=== PATIENT | female | born 1945 | race Caucasian/White ===

== ENCOUNTER 2016-06-22 07:43 | Inpatient (IN) | payer MEDICARE ==
[~2016-06-22] VITALS: Ht 160 cm; Wt 72.6 kg
[2016-06-22 08:41] LABS: HEMOGLOBIN 13.1 gm/dl (12.3-15.3); RED BLOOD COUNT 4.54 M/UL (4.00-5.10); WHITE BLOOD COUNT 7.6 K/UL (4.5-11.0)
[2016-06-22 08:55] LABS: BUN/CREATININE RATIO 30 (0-10)
[2016-06-22 16:51] LABS: HEMOGLOBIN 13.4 gm/dl (12.3-15.3)
[2016-06-22 23:06] LABS: HEMOGLOBIN 12.5 gm/dl (12.3-15.3)
[2016-06-23] MEDS ORDERED: PLAQUENIL 200200 MG PO (01:23)
[2016-06-23] MEDS ORDERED: HYDROCHLOROTHIA25 MG PO (01:23)
[2016-06-23] MEDS ORDERED: LEFLUNOMIDE10 MG PO (01:24)
[2016-06-23] MEDS ORDERED: XYZAL5 MG PO (01:25)
[2016-06-23] MEDS ORDERED: LEVOTHYROXINE50 MCG PO (01:25)
[2016-06-23] MEDS ORDERED: IMDUR ER TAB 3030 MG PO (01:28)
[2016-06-23] MEDS ORDERED: VERAPAMIL ER120 M1 PO (01:29)
[2016-06-23] MEDS ORDERED: VERAPAMIL ER240 MG PO (01:29)
[2016-06-23] MEDS ORDERED: JANUVIA50 MG PO (01:30)
[2016-06-23] MEDS ORDERED: ST. JOSEPH ASPI81 MG PO (01:31)
[2016-06-23] MEDS ORDERED: PROTONIX 40 MG40 M1 PO (01:31)
[2016-06-23] MEDS ORDERED: MULTIVITAMINS1 EAC1 PO (01:32)
[2016-06-23] MEDS ORDERED: CALCIUM ASCORB500 MG PO (01:39)
[2016-06-23] MEDS ORDERED: VITAMIN D5000 UNIT PO (01:39)
[2016-06-23] MEDS ORDERED: COLACE 100MG C100 MG PO (01:40)
[2016-06-23 07:30] LABS: WHITE BLOOD COUNT 6.3 K/UL (4.5-11.0)
[2016-06-23 07:31] LABS: RED BLOOD COUNT 3.4 M/UL (4.00-5.10)
[2016-06-23 07:32] LABS: HEMOGLOBIN 9.7 gm/dl (12.3-15.3)
[2016-06-23 07:44] LABS: BUN/CREATININE RATIO 26 (0-10)
[2016-06-23 16:25] LABS: HEMOGLOBIN 9.2 gm/dl (12.3-15.3)
[2016-06-24 07:55] LABS: HEMOGLOBIN 8.9 gm/dl (12.3-15.3); RED BLOOD COUNT 3.12 M/UL (4.00-5.10); WHITE BLOOD COUNT 6.3 K/UL (4.5-11.0)
[2016-06-24 08:07] LABS: BUN/CREATININE RATIO 16 (0-10)
[2016-06-25 05:41] LABS: HEMOGLOBIN 8.2 gm/dl (12.3-15.3); RED BLOOD COUNT 2.87 M/UL (4.00-5.10)
[2016-06-25 05:44] LABS: WHITE BLOOD COUNT 4.5 K/UL (4.5-11.0)
[2016-06-25 06:05] LABS: BUN/CREATININE RATIO 10 (0-10)
[2016-06-25] MEDS ORDERED: HABITROL 21 MG P1 EA TD (14:35)
[2016-09-21] MEDS ORDERED: ARAVA20 MG PO (21:09)
[2016-09-21] MEDS ORDERED: HYDROCHLOROTH12.5 M1 PO (21:09)
[2016-09-21] MEDS ORDERED: CALCIUM600 MG PO (21:10)
[2016-09-21] MEDS ORDERED: VITAMIN D5000 UNIT PO (21:10)
[2016-09-25] MEDS ORDERED: CEFDINIR300 MG PO (12:25)
[2016-09-25] MEDS ORDERED: NORVASC 5 MG TAB5 MG PO (12:26)
[2016-09-25] MEDS ORDERED: LIPITOR TAB 2020 MG PO (12:28)
[2016-09-25] MEDS ORDERED: TRANDATE 300 M300 MG PO (12:29)
[2016-09-25] MEDS ORDERED: COZAAR25 MG PO (12:31)
[2016-09-25] MEDS ORDERED: MAG-OX 400 TAB400 MG PO (12:32)
[2016-09-25] MEDS ORDERED: HABITROL 21 MG P1 EA TD (12:33)
[2016-09-25] MEDS ORDERED: BRILINTA90 MG PO (12:34)
[2016-11-20] MEDS ORDERED: ALPRAZOLAM0.5 MG PO (10:57)
[2016-11-20] MEDS ORDERED: ADVAIR 250-501 EACH INH (10:57)
[2016-11-20] MEDS ORDERED: VENTOLIN/PROVE0.5 ML INH (10:57)
[2016-11-20] MEDS ORDERED: ASPIR 8181 MG PO (10:58)
[2016-11-20] MEDS ORDERED: LIPITOR TAB 2020 MG PO (10:58)
[2016-11-20] MEDS ORDERED: BRILINTA90 MG PO (10:59)
[2016-11-20] MEDS ORDERED: CALCIUM600 MG PO (10:59)
[2016-11-20] MEDS ORDERED: HUMIRA10 MG/0.2 SQ (11:09)
[2016-11-20] MEDS ORDERED: HYDROCHLOROTHIA25 MG PO (11:10)
[2016-11-20] MEDS ORDERED: JANUVIA50 MG PO (11:10)
[2016-11-20] MEDS ORDERED: LOSARTAN POTASS25 MG PO (11:11)
[2016-11-20] MEDS ORDERED: LEVOTHYROXINE50 MCG PO (11:11)
[2016-11-20] MEDS ORDERED: LEVOCETIRIZINE D5 MG PO (11:11)
[2016-11-20] MEDS ORDERED: MIRTAZAPINE30 MG PO (11:12)
[2016-11-20] MEDS ORDERED: MONTELUKAST SOD10 MG PO (11:12)
[2016-11-20] MEDS ORDERED: PANTOPRAZOLE SO40 MG PO (11:13)
[2016-11-20] MEDS ORDERED: ZOFRAN ODT8 MG PO (11:13)
[2016-11-20] MEDS ORDERED: VITD3 PO (11:14)
[2016-11-20] MEDS ORDERED: PLAQUENIL 200200 MG PO (11:14)
[2016-11-20] MEDS ORDERED: METOPROLOL SUCC25 MG PO (11:15)
== END 2016-06-25 15:55 | disposition home or self-care (01) | DRG 378 ==
LOC: ER1 07:43 → ZEROF 12:35 → M/S 12:35
PROVIDERS: Emergency Medicine; Internal Medicine Gastroenterology; ADMIT Emergency Medicine
PROC: 0DJ08ZZ Inspection of Upper Intestinal Tract, Via Natural or Artificial Opening Endoscopic (ICD-10-PCS; principal; 2016-06-23 08:04)
PROC: 0DJD8ZZ Inspection of Lower Intestinal Tract, Via Natural or Artificial Opening Endoscopic (ICD-10-PCS; principal; 2016-06-23 08:04)
DX: K57.31 Diverticulosis of large intestine without perforation or abscess with bleeding (principal); K56.5 Intestinal adhesions [bands] with obstruction (postinfection); K76.6 Portal hypertension; D62 Acute posthemorrhagic anemia; I10 Essential (primary) hypertension; E78.5 Hyperlipidemia, unspecified; E10.9 Type 1 diabetes mellitus without complications; Z86.73 Personal history of transient ischemic attack (TIA), and cerebral infarction without residual deficits; F17.210 Nicotine dependence, cigarettes, uncomplicated; K21.9 Gastro-esophageal reflux disease without esophagitis; E03.9 Hypothyroidism, unspecified; K21.0 Gastro-esophageal reflux disease with esophagitis; Z90.49 Acquired absence of other specified parts of digestive tract; Z79.82 Long term (current) use of aspirin; F41.9 Anxiety disorder, unspecified; I44.7 Left bundle-branch block, unspecified; K76.9 Liver disease, unspecified
CPT/HCPCS: 36415; 71020; 76705; 80048; 80053; 82272; 82550; 82553; 82962; 83735; 83874; 84484; 85014; 85018; 85025; 85027; 85610; 85730; 86850; 86900; 86901; 86920; 86922; 93005; 96361; 96374; 99285; C9113; J2250; J2270; J2550; J3010; J7030; J7050; Q9962

== ENCOUNTER 2016-06-25 17:31 | Emergency (ER) | payer MEDICARE ==
[~2016-06-25 17:31] MED LIST: CALCIUM ASCORB500 MG PO; COLACE 100MG C100 MG PO; HABITROL 21 MG P1 EA TD; HYDROCHLOROTHIA25 MG PO; IMDUR ER TAB 3030 MG PO; JANUVIA50 MG PO; LEFLUNOMIDE10 MG PO; LEVOTHYROXINE50 MCG PO; MULTIVITAMINS1 EAC1 PO; PLAQUENIL 200200 MG PO; PROTONIX 40 MG40 M1 PO; ST. JOSEPH ASPI81 MG PO; VERAPAMIL ER120 M1 PO; VERAPAMIL ER240 MG PO; VITAMIN D5000 UNIT PO; XYZAL5 MG PO
[2016-09-21] MEDS ORDERED: HYDROCHLOROTH12.5 M1 PO (21:09)
[2016-09-21] MEDS ORDERED: ARAVA20 MG PO (21:09)
[2016-09-21] MEDS ORDERED: CALCIUM600 MG PO (21:10)
[2016-09-21] MEDS ORDERED: VITAMIN D5000 UNIT PO (21:10)
[2016-09-25] MEDS ORDERED: CEFDINIR300 MG PO (12:25)
[2016-09-25] MEDS ORDERED: NORVASC 5 MG TAB5 MG PO (12:26)
[2016-09-25] MEDS ORDERED: LIPITOR TAB 2020 MG PO (12:28)
[2016-09-25] MEDS ORDERED: TRANDATE 300 M300 MG PO (12:29)
[2016-09-25] MEDS ORDERED: COZAAR25 MG PO (12:31)
[2016-09-25] MEDS ORDERED: MAG-OX 400 TAB400 MG PO (12:32)
[2016-09-25] MEDS ORDERED: HABITROL 21 MG P1 EA TD (12:33)
[2016-09-25] MEDS ORDERED: BRILINTA90 MG PO (12:34)
[2016-11-20] MEDS ORDERED: ALPRAZOLAM0.5 MG PO (10:57)
[2016-11-20] MEDS ORDERED: VENTOLIN/PROVE0.5 ML INH (10:57)
[2016-11-20] MEDS ORDERED: ADVAIR 250-501 EACH INH (10:57)
[2016-11-20] MEDS ORDERED: LIPITOR TAB 2020 MG PO (10:58)
[2016-11-20] MEDS ORDERED: ASPIR 8181 MG PO (10:58)
[2016-11-20] MEDS ORDERED: CALCIUM600 MG PO (10:59)
[2016-11-20] MEDS ORDERED: BRILINTA90 MG PO (10:59)
[2016-11-20] MEDS ORDERED: HUMIRA10 MG/0.2 SQ (11:09)
[2016-11-20] MEDS ORDERED: JANUVIA50 MG PO (11:10)
[2016-11-20] MEDS ORDERED: HYDROCHLOROTHIA25 MG PO (11:10)
[2016-11-20] MEDS ORDERED: LOSARTAN POTASS25 MG PO (11:11)
[2016-11-20] MEDS ORDERED: LEVOCETIRIZINE D5 MG PO (11:11)
[2016-11-20] MEDS ORDERED: LEVOTHYROXINE50 MCG PO (11:11)
[2016-11-20] MEDS ORDERED: MONTELUKAST SOD10 MG PO (11:12)
[2016-11-20] MEDS ORDERED: MIRTAZAPINE30 MG PO (11:12)
[2016-11-20] MEDS ORDERED: ZOFRAN ODT8 MG PO (11:13)
[2016-11-20] MEDS ORDERED: PANTOPRAZOLE SO40 MG PO (11:13)
[2016-11-20] MEDS ORDERED: PLAQUENIL 200200 MG PO (11:14)
[2016-11-20] MEDS ORDERED: VITD3 PO (11:14)
[2016-11-20] MEDS ORDERED: METOPROLOL SUCC25 MG PO (11:15)
== END 2016-06-25 19:52 | disposition left against medical advice (07) ==
LOC: ER1 17:31
DX: Z53.21 Procedure and treatment not carried out due to patient leaving prior to being seen by health care provider (principal)

== ENCOUNTER 2016-06-26 09:10 | Emergency (ER) | payer MEDICARE ==
[2016-06-26 11:57] LABS: HEMOGLOBIN 8.5 gm/dl (12.3-15.3); RED BLOOD COUNT 2.98 M/UL (4.00-5.10)
[2016-06-26 11:58] LABS: WHITE BLOOD COUNT 7.5 K/UL (4.5-11.0)
[2016-06-26 12:15] LABS: BUN/CREATININE RATIO 17 (0-10)
[2016-09-21] MEDS ORDERED: ARAVA20 MG PO (21:09)
[2016-09-21] MEDS ORDERED: HYDROCHLOROTH12.5 M1 PO (21:09)
[2016-09-21] MEDS ORDERED: CALCIUM600 MG PO (21:10)
[2016-09-21] MEDS ORDERED: VITAMIN D5000 UNIT PO (21:10)
[2016-09-25] MEDS ORDERED: CEFDINIR300 MG PO (12:25)
[2016-09-25] MEDS ORDERED: NORVASC 5 MG TAB5 MG PO (12:26)
[2016-09-25] MEDS ORDERED: LIPITOR TAB 2020 MG PO (12:28)
[2016-09-25] MEDS ORDERED: TRANDATE 300 M300 MG PO (12:29)
[2016-09-25] MEDS ORDERED: COZAAR25 MG PO (12:31)
[2016-09-25] MEDS ORDERED: MAG-OX 400 TAB400 MG PO (12:32)
[2016-09-25] MEDS ORDERED: HABITROL 21 MG P1 EA TD (12:33)
[2016-09-25] MEDS ORDERED: BRILINTA90 MG PO (12:34)
[2016-11-20] MEDS ORDERED: ALPRAZOLAM0.5 MG PO (10:57)
[2016-11-20] MEDS ORDERED: VENTOLIN/PROVE0.5 ML INH (10:57)
[2016-11-20] MEDS ORDERED: ADVAIR 250-501 EACH INH (10:57)
[2016-11-20] MEDS ORDERED: LIPITOR TAB 2020 MG PO (10:58)
[2016-11-20] MEDS ORDERED: ASPIR 8181 MG PO (10:58)
[2016-11-20] MEDS ORDERED: BRILINTA90 MG PO (10:59)
[2016-11-20] MEDS ORDERED: CALCIUM600 MG PO (10:59)
[2016-11-20] MEDS ORDERED: HUMIRA10 MG/0.2 SQ (11:09)
[2016-11-20] MEDS ORDERED: HYDROCHLOROTHIA25 MG PO (11:10)
[2016-11-20] MEDS ORDERED: JANUVIA50 MG PO (11:10)
[2016-11-20] MEDS ORDERED: LEVOCETIRIZINE D5 MG PO (11:11)
[2016-11-20] MEDS ORDERED: LOSARTAN POTASS25 MG PO (11:11)
[2016-11-20] MEDS ORDERED: LEVOTHYROXINE50 MCG PO (11:11)
[2016-11-20] MEDS ORDERED: MONTELUKAST SOD10 MG PO (11:12)
[2016-11-20] MEDS ORDERED: MIRTAZAPINE30 MG PO (11:12)
[2016-11-20] MEDS ORDERED: ZOFRAN ODT8 MG PO (11:13)
[2016-11-20] MEDS ORDERED: PANTOPRAZOLE SO40 MG PO (11:13)
[2016-11-20] MEDS ORDERED: VITD3 PO (11:14)
[2016-11-20] MEDS ORDERED: PLAQUENIL 200200 MG PO (11:14)
[2016-11-20] MEDS ORDERED: METOPROLOL SUCC25 MG PO (11:15)
== END 2016-06-26 17:10 ==
LOC: ER1 09:10
PROVIDERS: Emergency Medicine
DX: K57.31 Diverticulosis of large intestine without perforation or abscess with bleeding (principal); D64.9 Anemia, unspecified; E11.9 Type 2 diabetes mellitus without complications; I10 Essential (primary) hypertension; E07.9 Disorder of thyroid, unspecified; F17.200 Nicotine dependence, unspecified, uncomplicated; Z79.82 Long term (current) use of aspirin; Z79.84 Long term (current) use of oral hypoglycemic drugs; Z79.899 Other long term (current) drug therapy
CPT/HCPCS: 36415; 80053; 83605; 84484; 85025; 85610; 85730; 86850; 86900; 86901; 86920; 86922; 93005; 96374; 99284; C9113

== ENCOUNTER 2016-07-27 20:16 | Emergency (ER) | payer MEDICARE ==
[2016-07-27 22:21] LABS: HEMOGLOBIN 9.8 gm/dl (12.3-15.3); RED BLOOD COUNT 3.41 M/UL (4.00-5.10); WHITE BLOOD COUNT 5.6 K/UL (4.5-11.0)
[2016-07-27 22:45] LABS: BUN/CREATININE RATIO 22 (0-10)
[2016-09-21] MEDS ORDERED: ARAVA20 MG PO (21:09)
[2016-09-21] MEDS ORDERED: HYDROCHLOROTH12.5 M1 PO (21:09)
[2016-09-21] MEDS ORDERED: CALCIUM600 MG PO (21:10)
[2016-09-21] MEDS ORDERED: VITAMIN D5000 UNIT PO (21:10)
[2016-09-25] MEDS ORDERED: CEFDINIR300 MG PO (12:25)
[2016-09-25] MEDS ORDERED: NORVASC 5 MG TAB5 MG PO (12:26)
[2016-09-25] MEDS ORDERED: LIPITOR TAB 2020 MG PO (12:28)
[2016-09-25] MEDS ORDERED: TRANDATE 300 M300 MG PO (12:29)
[2016-09-25] MEDS ORDERED: COZAAR25 MG PO (12:31)
[2016-09-25] MEDS ORDERED: MAG-OX 400 TAB400 MG PO (12:32)
[2016-09-25] MEDS ORDERED: HABITROL 21 MG P1 EA TD (12:33)
[2016-09-25] MEDS ORDERED: BRILINTA90 MG PO (12:34)
[2016-11-20] MEDS ORDERED: ALPRAZOLAM0.5 MG PO (10:57)
[2016-11-20] MEDS ORDERED: VENTOLIN/PROVE0.5 ML INH (10:57)
[2016-11-20] MEDS ORDERED: ADVAIR 250-501 EACH INH (10:57)
[2016-11-20] MEDS ORDERED: ASPIR 8181 MG PO (10:58)
[2016-11-20] MEDS ORDERED: LIPITOR TAB 2020 MG PO (10:58)
[2016-11-20] MEDS ORDERED: CALCIUM600 MG PO (10:59)
[2016-11-20] MEDS ORDERED: BRILINTA90 MG PO (10:59)
[2016-11-20] MEDS ORDERED: HUMIRA10 MG/0.2 SQ (11:09)
[2016-11-20] MEDS ORDERED: JANUVIA50 MG PO (11:10)
[2016-11-20] MEDS ORDERED: HYDROCHLOROTHIA25 MG PO (11:10)
[2016-11-20] MEDS ORDERED: LOSARTAN POTASS25 MG PO (11:11)
[2016-11-20] MEDS ORDERED: LEVOCETIRIZINE D5 MG PO (11:11)
[2016-11-20] MEDS ORDERED: LEVOTHYROXINE50 MCG PO (11:11)
[2016-11-20] MEDS ORDERED: MONTELUKAST SOD10 MG PO (11:12)
[2016-11-20] MEDS ORDERED: MIRTAZAPINE30 MG PO (11:12)
[2016-11-20] MEDS ORDERED: ZOFRAN ODT8 MG PO (11:13)
[2016-11-20] MEDS ORDERED: PANTOPRAZOLE SO40 MG PO (11:13)
[2016-11-20] MEDS ORDERED: VITD3 PO (11:14)
[2016-11-20] MEDS ORDERED: PLAQUENIL 200200 MG PO (11:14)
[2016-11-20] MEDS ORDERED: METOPROLOL SUCC25 MG PO (11:15)
== END 2016-07-28 01:50 | disposition home or self-care (01) ==
LOC: ER1 20:16
PROVIDERS: Family Medicine
DX: F41.9 Anxiety disorder, unspecified (principal); E87.6 Hypokalemia; I69.954 Hemiplegia and hemiparesis following unspecified cerebrovascular disease affecting left non-dominant side; D64.9 Anemia, unspecified; N39.0 Urinary tract infection, site not specified; K57.90 Diverticulosis of intestine, part unspecified, without perforation or abscess without bleeding; I10 Essential (primary) hypertension; E11.9 Type 2 diabetes mellitus without complications; J44.9 Chronic obstructive pulmonary disease, unspecified; E03.9 Hypothyroidism, unspecified; F17.210 Nicotine dependence, cigarettes, uncomplicated; Z79.899 Other long term (current) drug therapy
CPT/HCPCS: 36415; 70450; 80053; 81001; 82550; 82553; 83605; 83690; 83874; 84484; 85025; 87045; 87046; 87077; 87086; 87186; 89055; 93005; 96361; 96374; 96376; 99284; J2060; J7030; J7050; Q9962

== ENCOUNTER 2016-08-04 11:49 | Emergency (ER) | payer MEDICARE ==
[2016-08-04 13:53] LABS: BUN/CREATININE RATIO 23 (0-10)
[2016-08-04 13:56] LABS: HEMOGLOBIN 10.9 gm/dl (12.3-15.3); RED BLOOD COUNT 3.74 M/UL (4.00-5.10); WHITE BLOOD COUNT 5.9 K/UL (4.5-11.0)
[2016-09-21] MEDS ORDERED: ARAVA20 MG PO (21:09)
[2016-09-21] MEDS ORDERED: HYDROCHLOROTH12.5 M1 PO (21:09)
[2016-09-21] MEDS ORDERED: VITAMIN D5000 UNIT PO (21:10)
[2016-09-21] MEDS ORDERED: CALCIUM600 MG PO (21:10)
[2016-09-25] MEDS ORDERED: CEFDINIR300 MG PO (12:25)
[2016-09-25] MEDS ORDERED: NORVASC 5 MG TAB5 MG PO (12:26)
[2016-09-25] MEDS ORDERED: LIPITOR TAB 2020 MG PO (12:28)
[2016-09-25] MEDS ORDERED: TRANDATE 300 M300 MG PO (12:29)
[2016-09-25] MEDS ORDERED: COZAAR25 MG PO (12:31)
[2016-09-25] MEDS ORDERED: MAG-OX 400 TAB400 MG PO (12:32)
[2016-09-25] MEDS ORDERED: HABITROL 21 MG P1 EA TD (12:33)
[2016-09-25] MEDS ORDERED: BRILINTA90 MG PO (12:34)
[2016-11-20] MEDS ORDERED: ADVAIR 250-501 EACH INH (10:57)
[2016-11-20] MEDS ORDERED: ALPRAZOLAM0.5 MG PO (10:57)
[2016-11-20] MEDS ORDERED: VENTOLIN/PROVE0.5 ML INH (10:57)
[2016-11-20] MEDS ORDERED: LIPITOR TAB 2020 MG PO (10:58)
[2016-11-20] MEDS ORDERED: ASPIR 8181 MG PO (10:58)
[2016-11-20] MEDS ORDERED: CALCIUM600 MG PO (10:59)
[2016-11-20] MEDS ORDERED: BRILINTA90 MG PO (10:59)
[2016-11-20] MEDS ORDERED: HUMIRA10 MG/0.2 SQ (11:09)
[2016-11-20] MEDS ORDERED: JANUVIA50 MG PO (11:10)
[2016-11-20] MEDS ORDERED: HYDROCHLOROTHIA25 MG PO (11:10)
[2016-11-20] MEDS ORDERED: LEVOTHYROXINE50 MCG PO (11:11)
[2016-11-20] MEDS ORDERED: LEVOCETIRIZINE D5 MG PO (11:11)
[2016-11-20] MEDS ORDERED: LOSARTAN POTASS25 MG PO (11:11)
[2016-11-20] MEDS ORDERED: MIRTAZAPINE30 MG PO (11:12)
[2016-11-20] MEDS ORDERED: MONTELUKAST SOD10 MG PO (11:12)
[2016-11-20] MEDS ORDERED: PANTOPRAZOLE SO40 MG PO (11:13)
[2016-11-20] MEDS ORDERED: ZOFRAN ODT8 MG PO (11:13)
[2016-11-20] MEDS ORDERED: VITD3 PO (11:14)
[2016-11-20] MEDS ORDERED: PLAQUENIL 200200 MG PO (11:14)
[2016-11-20] MEDS ORDERED: METOPROLOL SUCC25 MG PO (11:15)
== END 2016-08-04 14:34 | disposition home or self-care (01) ==
LOC: ER1 11:49
PROVIDERS: Preventive Medicine Occupational Medicine
DX: R55 Syncope and collapse (principal); R53.1 Weakness; R51 Headache; R20.2 Paresthesia of skin; R47.9 Unspecified speech disturbances; R26.2 Difficulty in walking, not elsewhere classified; I10 Essential (primary) hypertension; J44.9 Chronic obstructive pulmonary disease, unspecified; Z87.891 Personal history of nicotine dependence; Z86.73 Personal history of transient ischemic attack (TIA), and cerebral infarction without residual deficits; Z88.1 Allergy status to other antibiotic agents; Z79.82 Long term (current) use of aspirin; Z79.899 Other long term (current) drug therapy
CPT/HCPCS: 36415; 70450; 71010; 80053; 80307; 81001; 82550; 82553; 83874; 84484; 85025; 93005; 96374; 99284; J2405

== ENCOUNTER 2016-08-27 17:22 | Emergency (ER) | payer MEDICARE ==
[2016-08-27 19:20] LABS: HEMOGLOBIN 10.9 gm/dl (12.3-15.3); RED BLOOD COUNT 3.91 M/UL (4.00-5.10); WHITE BLOOD COUNT 8.2 K/UL (4.5-11.0)
[2016-08-27 19:40] LABS: BUN/CREATININE RATIO 22 (0-10)
[2016-09-21] MEDS ORDERED: ARAVA20 MG PO (21:09)
[2016-09-21] MEDS ORDERED: HYDROCHLOROTH12.5 M1 PO (21:09)
[2016-09-21] MEDS ORDERED: VITAMIN D5000 UNIT PO (21:10)
[2016-09-21] MEDS ORDERED: CALCIUM600 MG PO (21:10)
[2016-09-25] MEDS ORDERED: CEFDINIR300 MG PO (12:25)
[2016-09-25] MEDS ORDERED: NORVASC 5 MG TAB5 MG PO (12:26)
[2016-09-25] MEDS ORDERED: LIPITOR TAB 2020 MG PO (12:28)
[2016-09-25] MEDS ORDERED: TRANDATE 300 M300 MG PO (12:29)
[2016-09-25] MEDS ORDERED: COZAAR25 MG PO (12:31)
[2016-09-25] MEDS ORDERED: MAG-OX 400 TAB400 MG PO (12:32)
[2016-09-25] MEDS ORDERED: HABITROL 21 MG P1 EA TD (12:33)
[2016-09-25] MEDS ORDERED: BRILINTA90 MG PO (12:34)
[2016-11-20] MEDS ORDERED: ADVAIR 250-501 EACH INH (10:57)
[2016-11-20] MEDS ORDERED: VENTOLIN/PROVE0.5 ML INH (10:57)
[2016-11-20] MEDS ORDERED: ALPRAZOLAM0.5 MG PO (10:57)
[2016-11-20] MEDS ORDERED: LIPITOR TAB 2020 MG PO (10:58)
[2016-11-20] MEDS ORDERED: ASPIR 8181 MG PO (10:58)
[2016-11-20] MEDS ORDERED: BRILINTA90 MG PO (10:59)
[2016-11-20] MEDS ORDERED: CALCIUM600 MG PO (10:59)
[2016-11-20] MEDS ORDERED: HUMIRA10 MG/0.2 SQ (11:09)
[2016-11-20] MEDS ORDERED: HYDROCHLOROTHIA25 MG PO (11:10)
[2016-11-20] MEDS ORDERED: JANUVIA50 MG PO (11:10)
[2016-11-20] MEDS ORDERED: LEVOCETIRIZINE D5 MG PO (11:11)
[2016-11-20] MEDS ORDERED: LOSARTAN POTASS25 MG PO (11:11)
[2016-11-20] MEDS ORDERED: LEVOTHYROXINE50 MCG PO (11:11)
[2016-11-20] MEDS ORDERED: MIRTAZAPINE30 MG PO (11:12)
[2016-11-20] MEDS ORDERED: MONTELUKAST SOD10 MG PO (11:12)
[2016-11-20] MEDS ORDERED: ZOFRAN ODT8 MG PO (11:13)
[2016-11-20] MEDS ORDERED: PANTOPRAZOLE SO40 MG PO (11:13)
[2016-11-20] MEDS ORDERED: VITD3 PO (11:14)
[2016-11-20] MEDS ORDERED: PLAQUENIL 200200 MG PO (11:14)
[2016-11-20] MEDS ORDERED: METOPROLOL SUCC25 MG PO (11:15)
== END 2016-08-27 22:22 | disposition left against medical advice (07) ==
LOC: ER1 17:22
PROVIDERS: Physician Assistant
DX: J20.9 Acute bronchitis, unspecified (principal); E87.6 Hypokalemia; D80.9 Immunodeficiency with predominantly antibody defects, unspecified; E11.9 Type 2 diabetes mellitus without complications; I10 Essential (primary) hypertension; E78.5 Hyperlipidemia, unspecified; E03.9 Hypothyroidism, unspecified; M19.90 Unspecified osteoarthritis, unspecified site; M06.9 Rheumatoid arthritis, unspecified; F95.9 Tic disorder, unspecified; Z86.73 Personal history of transient ischemic attack (TIA), and cerebral infarction without residual deficits; Z79.899 Other long term (current) drug therapy
CPT/HCPCS: 36415; 71010; 71250; 80053; 81001; 82550; 82553; 83605; 83690; 83874; 84484; 85025; 87086; 96361; 96365; 99285; J0696; J7030